=== PATIENT | female | born 1980 | race American Indian/Alaskan Native ===

== ENCOUNTER 2018-11-03 23:17 | Emergency (ER) | payer MEDICAID ==
[2018-11-03] MEDS ORDERED: NACL 0.9% 1000 ML 1,000 ML IV ONE (23:48)
--- NOTE | 2018-11-04 00:09 | Emergency Department Report ---
ED General Adult HPI - General Chief complaint: Abdominal Pain Stated complaint: ABD PAIN Time Seen by Provider: 11/03/18 23:50 Source: patient, family, EMS Mode of arrival: Stretcher Limitations: No Limitations - History of Present Illness Initial comments: 38-year-old female with no past medical history presents with complaint of epigastric pain. Patient states that around 8:30 PM she had the onset of pain in her epigastric region that radiated to her left chest. Patient has no history of PE or DVT. Patient states she had a history of a prior episode of similar pain 4 years ago but the pain resolved. Patient states her last bowel movement was yesterday. Patient denies any hematochezia. Patient has no history of PE or DVT. Patient has had no recent long trips. There patient states that she is on a leaf tea detox and has been on this for the past week. Patient states that last bowel movement was yesterday and she had no hematochezia. Patient currently complains of nausea. Severity scale (0 -10): 8 - Related Data Previous Rx's Medication Instructions Recorded Last Taken Type Famotidine [Pepcid] 20 mg PO BID #60 tablet 11/04/18 Unknown Rx HYDROcodone/APAP 5-325 [[place] 1 each PO Q6HR PRN #20 tablet 11/04/18 Unknown Rx 5/325] Ondansetron (Nf) [Zofran TAB] 4 mg PO Q8HR PRN #15 tablet 11/04/18 Unknown Rx Allergies Allergy/AdvReac Type Severity Reaction Status Date / Time No Known Allergies Allergy Unverified 11/03/18 23:48 ED Review of Systems ROS: Stated complaint: ABD PAIN Other details as noted in HPI Constitutional: denies: chills, fever Eyes: denies: eye pain, eye discharge, vision change ENT: denies: ear pain, throat pain Respiratory: SOB at rest. denies: cough, shortness of breath, wheezing Cardiovascular: denies: chest pain, palpitations Endocrine: no symptoms reported Gastrointestinal: abdominal pain, vomiting. denies: nausea, diarrhea Genitourinary: denies: urgency, dysuria, discharge Musculoskeletal: denies: back pain, joint swelling, arthralgia Skin: denies: rash, lesions Neurological: denies: headache, weakness, paresthesias Psychiatric: denies: anxiety, depression Hematological/Lymphatic: denies: easy bleeding, easy bruising ED Past Medical Hx - Past Medical History Previous Medical History?: No - Surgical History Past Surgical History?: No - Social History Smoking Status: Unknown if ever smoked Substance Use Type: None - Medications Home Medications: Home Medications Medication Instructions Recorded Confirmed Last Taken Type Famotidine [Pepcid] 20 mg PO BID #60 tablet 11/04/18 Unknown Rx HYDROcodone/APAP 5-325 [[place] 1 each PO Q6HR PRN #20 tablet 11/04/18 Unknown Rx 5/325] Ondansetron (Nf) [Zofran TAB] 4 mg PO Q8HR PRN #15 tablet 11/04/18 Unknown Rx ED Physical Exam - General Limitations: No Limitations General appearance: alert, in no apparent distress, other (mildly uncomfortable) - Head Head exam: Present: atraumatic, normocephalic - Eye Eye exam: Present: normal appearance - ENT ENT exam: Present: mucous membranes dry - Neck Neck exam: Present: normal inspection - Respiratory Respiratory exam: Present: normal lung sounds bilaterally. Absent: respiratory distress - Cardiovascular Cardiovascular Exam: Present: regular rate, normal rhythm. Absent: systolic murmur, diastolic murmur, rubs, gallop - GI/Abdominal GI/Abdominal exam: Present: soft, normal bowel sounds - Extremities Exam Extremities exam: Present: normal inspection - Back Exam Back exam: Present: normal inspection - Neurological Exam Neurological exam: Present: alert, oriented X3 - Psychiatric Psychiatric exam: Present: normal affect, normal mood - Skin Skin exam: Present: warm, dry, intact, normal color. Absent: rash ED Course Vital Signs 11/03/18 11/03/18 11/03/18 23:39 23:40 23:57 Temperature 98 F Pulse Rate 89 Respiratory 18 Rate Blood Pressure 141/86 141/86 148/87 O2 Sat by Pulse 99 98 Oximetry 11/04/18 11/04/18 11/04/18 00:01 00:15 00:30 Temperature Pulse Rate 98 H 76 Respiratory 22 12 16 Rate Blood Pressure 138/79 138/79 141/86 O2 Sat by Pulse 100 100 Oximetry 11/04/18 11/04/18 11/04/18 00:45 00:46 01:00 Temperature Pulse Rate 87 Respiratory 18 24 Rate Blood Pressure 134/74 134/84 O2 Sat by Pulse 100 98 Oximetry 11/04/18 11/04/18 11/04/18 01:16 01:31 02:05 Temperature Pulse Rate 69 Respiratory 18 13 Rate Blood Pressure 134/84 119/97 O2 Sat by Pulse 99 Oximetry 11/04/18 11/04/18 11/04/18 02:12 02:15 02:30 Temperature Pulse Rate 66 64 Respiratory 16 22 19 Rate Blood Pressure 129/71 122/66 O2 Sat by Pulse 97 Oximetry 11/04/18 11/04/18 11/04/18 02:42 02:45 03:00 Temperature Pulse Rate 61 80 Respiratory 16 14 21 Rate Blood Pressure 119/97 122/66 O2 Sat by Pulse 97 97 Oximetry ED Medical Decision Making - Lab Data Result diagrams: 11/04/18 00:10 11/04/18 00:10 - EKG Data EKG shows normal: sinus rhythm Rate: normal - EKG Data When compared to previous EKG there are: no significant change Interpretation: no acute changes - Medical Decision Making Patient has a CT PE shows no evidence of acute PE. Patient's pain is improved with morphine administration. Patient to be discharged with Ultram and Pepcid therapy. - Differential Diagnosis arrhythmia; PE; pneumonia; pneumothorax; Critical care attestation.: If time is entered above; I have spent that time in minutes in the direct care of this critically ill patient, excluding procedure time. ED Disposition Clinical Impression: Chest pain, Vomiting, GERD (gastroesophageal reflux disease) Disposition: - TO HOME OR SELFCARE Is pt being admited?: No Condition: Fair Instructions: Chest Pain (ED), Abdominal Pain (ED) Prescriptions: HYDROcodone/APAP 5-325 [[place] 5/325] 1 each PO Q6HR PRN #20 tablet PRN Reason: Pain Famotidine [Pepcid] 20 mg PO BID #60 tablet Ondansetron (Nf) [Zofran TAB] 4 mg PO Q8HR PRN #15 tablet PRN Reason: vomiting and nausea Referrals: MELODY DAUGHERTY MD [Primary Care Provider] - 3-5 Days Time of Disposition: 06:43 Print Language: TAJIK
[2018-11-04] MEDS ORDERED: NACL 0.9% 1000 ML 1,000 ML IV ONE (00:10)
[2018-11-04] MEDS ORDERED: ZOFRAN IV ONE ×2 (00:10→02:10)
[2018-11-04] MEDS ORDERED: MORPHINE IV ONE ×2 (00:10→02:10)
[2018-11-04 00:23] LABS: Basophils % (Auto) 0.4 % (0.0-1.8); Eosinophils % (Auto) 0.1 % (0.0-4.3); Hematocrit 33.9 % (30.3-42.9); Hemoglobin 11.1 gm/dl (10.1-14.3); Lymphocytes # (Auto) 1.8 K/mm3 (1.2-5.4); Lymphocytes % (Auto) 15.8 % (13.4-35.0); Mean Corpuscular HGB Conc 33 % (30-34); Mean Corpuscular Volume 88 fl (79-97); Monocytes # (Auto) 0.4 K/mm3 (0.0-0.8); Monocytes % (Auto) 3.6 % (0.0-7.3); Platelet Count 489 K/mm3 (140-440); Red Blood Count 3.84 M/mm3 (3.65-5.03); Red Cell Distribution Width 15.1 % (13.2-15.2)
[2018-11-04 00:46] LABS: Alanine Aminotransferase 22 units/L (7-56); Albumin 3.9 g/dL (3.9-5); BUN/Creatinine Ratio 13; Blood Urea Nitrogen 9 mg/dL (7-17); Hemolysis Index 1
[2018-11-04 01:52] LABS: RBC,Urine > 182.0 /HPF (0.0-6.0)
[2018-11-04 01:53] LABS: Bacteria,Urine 1+ /HPF (Negative); Mucus,Urine 1+ /HPF
[2018-11-04 01:54] LABS: Bilirubin,Urine NEG (Negative); Blood,Urine LG (Negative); Color,Urine Yellow (Yellow); Mucus,Urine FEW /HPF; Protein,Urine <15 mg/dL mg/dL (Negative); RBC,Urine < 1.0 /HPF (0.0-6.0); Urobilinogen,Urine < 2.0 mg/dL (<2.0); WBC,Urine < 1.0 /HPF (0.0-6.0)
[2018-11-04 02:00] LABS: Bilirubin,Urine Negative (Negative); Blood,Urine Large (Negative); Color,Urine Yellow (Yellow); Protein,Urine <15 mg/dL mg/dL (Negative)
[2018-11-04 02:01] LABS: Urobilinogen,Urine < 2.0 mg/dL (<2.0)
--- NOTE | 2018-11-04 02:12 | Cat Scan Report ---
PROCEDURE: CT ABDOMEN PELVIS WO CON TECHNIQUE: Routine axial imaging was obtained of the abdomen and pelvis without oral or IV contrast. Sagittal and coronal reconstructions were reviewed. HISTORY: abdominal pain COMPARISONS: None FINDINGS: The lung bases are clear. Pleural fluid is not seen. The gallbladder is normal in size. Small stones in the gallbladder cannot be excluded. The biliary tr ee appears normal. The liver, pancreas, spleen and adrenal glands appear normal. The kidneys show no evidence of stones or hydronephrosis. The bowel loops are normal in caliber and course. The appendix is not enlarged. There is no evidence of free fluid or adenopathy. In the pelvis the uterus and bladd er appear normal. There are phleboliths along the floor of the pelvis. The skeletal structures are un remarkable. IMPRESSION: No acute process in the abdomen and pelvis. Small stones in the gallbladder cannot be excluded. No secondary signs of acute cholecystitis.. This document is electronically signed by Ede Figueroa MD., November 04 2018 02:09:51 AM ET
--- NOTE | 2018-11-04 02:41 | XRay Report ---
PROCEDURE: XR CHEST 1V AP TECHNIQUE: Chest radiograph single view. HISTORY: chest pain COMPARISONS: None . FINDINGS: Heart: Normal. Mediastinum/Vessels: Normal. Lungs/Pleural space: Normal. Bony thorax: No acute osseous abnormality. Life support devices: None. IMPRESSION: No acute cardiopulmonary abnormality. This document is electronically signed by Geetha Stoner DO., November 04 2018 02:40:07 AM ET
--- NOTE | 2018-11-04 04:08 | Cat Scan Report ---
PROCEDURE: CT ANGIO CHEST TECHNIQUE: A CT angiogram was obtained following the intravenous injection of iodinated contrast. Sa gittal, coronal, and rotational MIP reconstructions were reviewed. HISTORY: chest pain with elevated d dimer COMPARISONS: Chest x-ray 11/04/2018 FINDINGS: The heart size is normal. There is no evidence of pericardial effusion. The thoracic aorta is normal in configuration. There is no evidence of pulmonary embolus or vascular congestion. The lungs are john ar. Pleural fluid is not seen. At the thoracic inlet the thyroid gland appears normal. In the upper a bdomen there is a small hiatal hernia. The skeletal structures do not show acute changes. IMPRESSION: No evidence of pulmonary embolus, aortic dissection, or vascular congestion. No acute process in the chest. Small hiatal hernia. This document is electronically signed by Ede Figueroa MD., November 04 2018 04:06:27 AM ET
[2018-11-04 04:16] VITALS: BP 122/66
[2018-11-04] MEDS ORDERED: REGLAN IV ONE (04:55)
== END 2018-11-04 07:02 | disposition home or self-care (01) ==
LOC: ED 23:17
DX: K21.9 Gastro-esophageal reflux disease without esophagitis (principal)
CPT/HCPCS: 36415; 71045; 71275; 74176; 80053; 81001; 82550; 83690; 84484; 84703; 85025; 85379; 93005; 93010; 96361; 96374; 96375; 96376; 99285; J2270; J2405; J2765; J7030; Q9967